=== PATIENT | female | born 1995 | race Asian ===

== ENCOUNTER 2024-09-05 14:10 | Emergency (ER) | payer OTHER ==
[~2024-09-05] VITALS: Ht 167.6 cm; Wt 57.0 kg
[2024-09-05] MEDS ORDERED: ADENOSINE 3 MG/ML 2ML VIAL IV ONE (14:45)
[2024-09-05] MEDS: ADENOSINE 3 MG/ML 2ML VIAL IV ONE ×2 (14:56→14:57)
[2024-09-05] MEDS: SODIUM CHLORIDE 0.9% 1,000 ML IV ONE (15:14)
[2024-09-05 15:17] VITALS: BP 108/81; PULSE 76; RESP 16; TEMP 36.8; O2SAT 100
[2024-09-05] MEDS ORDERED: ATENOLOL 25MG TABLET PO ONE (15:45)
== END 2024-09-05 16:32 | disposition left against medical advice (07) ==
LOC: ER 14:10 → EDBEDREQ 14:47 → ER 16:32 → CANBEDREQ 17:53
DX: I47.10 Supraventricular tachycardia, unspecified (principal); R00.2 Palpitations; Z79.899 Other long term (current) drug therapy; Z98.890 Other specified postprocedural states
CPT/HCPCS: 93005; 96361; 96374; 99283; J0153; J7030; Z7610 ×2; 96375; 99284; A4606